=== PATIENT | female | born 1970 | race Caucasian/White ===

== ENCOUNTER 2021-05-23 10:01 | Outpatient (CLI) | payer MEDICAID, SELFPAY ==
--- NOTE | 2021-05-23 10:09 | XR_ITS ---
WS: [id number] Right ankle, 3 views, 05/23/2021 Clinical Data: ANKLE PAIN RIGHT Comparison: None. Findings: No fractures or dislocations are seen. The ankle mortise is normal. The talus and calcaneus are unrem arkable. No soft tissue swelling over the medial or lateral malleolus is seen. There is an Achilles spur and a plantar spur. XR/XR ankle RT min 3V* [id number] Impression: Negative right ankle.
--- NOTE | 2021-05-23 10:10 | XR_ITS ---
WS: [id number] Right foot, 3 views, 05/23/2021 Clinical Data: ANKLE PAIN RIGHT Comparison: None. Findings: No fractures or dislocations are seen. No bone destruction or erosion is noted. There is mild osteoar thritis of the right first MTP joint. There is an Achilles spur and a plantar spur. 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
== END 2021-05-23 10:02 | disposition home or self-care (01) ==
LOC: RAD 10:04
PROVIDERS: Family Provider Family Medicine; PCP Family Medicine; Visit Provider Nurse Practitioner Family
DX: M25.571 Pain in right ankle and joints of right foot (principal)
CPT/HCPCS: 73610; 73630

== ENCOUNTER → 2022-03-11 13:47 | Outpatient (BNVA) | payer MEDICAID, SELFPAY | PROVIDERS: Family Provider Family Medicine; PCP Family Medicine; Referring Provider Family Medicine; Visit Provider Specialist | DX: G56.03 Carpal tunnel syndrome, bilateral upper limbs (principal) | CPT/HCPCS: 73110 ==

== ENCOUNTER 2022-03-22 09:05 | Day surgery (SDC) | payer MEDICAID, SELFPAY ==
[2022-03-21 12:50] VITALS: BMI 37.4
[2022-03-22] VITALS (7 sets, daily range): BP systolic 120–169; BP diastolic 63–89; PULSE 78–94; RESP 14–24; TEMP 36.9–37.3; O2SAT 94–99
[2022-03-22] MEDS: CELEcoxib 200 mg Capsule 400 MG PO (09:37)
[2022-03-22] MEDS: acetaminophen 1,000 MG/100 ML PIGGYBACK 400 MG IV (09:37)
[2022-03-22] MEDS: sodium chloride 0.9% 1,000 ML 30 ML IV (09:38)
--- NOTE | 2022-03-22 09:47 | W.PM.OPSUD ---
Surgery/Procedure H&P Update DATE OF PROCEDURE: March 22, 2022 DATE H&P PERFORMED: 03/11/22 H&P UPDATE INFORMATION: I have reviewed H&P completed within last 30 days, I have examined patient prior to procedure, No changes to prior documentation and H&P is in [facility] EMR on date indicated PREOP DIAGNOSIS: Right carpal tunnel syndrome PLANNED PROCEDURE: Operation Date: 03/22/22 10:30 Proposed Procedures p RIGHT CARPAL TUNNEL RELEASE [id number],G56.00(Right) - Maria Luz Stahl MD Related Problem List Diagnoses (1) Right carpal tunnel syndrome:
[2022-03-22 09:52] LABS: OR HCG Qualitative Urine Negative (Negative)
--- NOTE | 2022-03-22 10:04 | ECG_ITS ---
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 Measurements Intervals [place] Rate: 77 P: 63 SC: 141 QRS: 15 QRSD: 97 T: -2 QT: 395 QTc: 447 Interpretive Statements SINUS RHYTHM No previous ECG available for comparison Electronically Signed On 03-22-2022 14:41:43 CASH POSTING SPECIALIST by Mateus Nelson M.D. [email or web address]
--- NOTE | 2022-03-22 10:55 | SUR.PREOP ---
1030 - Rounding \pt resting. at bedside. call light in place. no complaints at present.
[2022-03-22] MEDS: ceFAZolin 2,000 MG in sodium chloride 0.9% (plus) 50 ML 100 MG IV (10:58)
--- NOTE | 2022-03-22 12:06 | SUR.PHASEI ---
1200 PT TO PACU 2, PT AWAKES TO VOICE, GOOD RESP NOTED , PT MONITOR SR WITH NO ECTOPY, IV TO LT HAND #20 WITH 250NS AT KVO RATE PER GRAVITY, RT WRIST WITH SOFT DRESSING D/I DISTAL FINGERS PINK WARM WITH CAP REFILL LESS THAN 3 SECONDS, PT MOVES FINGERS TO COMMANDS AND STATES THAT SHE HAS TOUCH SENSATION 1208 PT ON RA TRIAL, TAKING OCC ICE CHIPS WITHOUT DIFFICULTY. VSS. HOB AT 30 DEGREES.
--- NOTE | 2022-03-22 12:27 | SUR.PHASEI ---
1220 PT INCONTINENT OF SMALL BROWN STOOL IN OR, PT COMPLETE LINEN CHANGE AND EMPERATRIZ CARE GIVEN, PT TO OPS BAY 10 WAITING ON PT IN ROOM, HANDOFF AT BEDSIDE ,PT DENIES PAIN AND NAUSEA, VSS. PT REQUESTS COFFEE TO SIP ON.
--- NOTE | 2022-03-22 12:45 | ANES.PREANE2 ---
Pre-Anesthetic Assessment Height/Weight: Height 1.65 m Weight 102.058 kg Temp Pulse Resp BP Pulse Ox O2 Del Method O2 Flow Rate 98.4 F 78 17 123/77 99 8 03/22/22 12:20 03/22/22 12:26 03/22/22 12:26 03/22/22 12:26 03/22/22 12:26 03/22/22 12:03/22/22 12:05 Preop Diagnosis: Right carpal tunnel syndrome Operation Date: 03/22/22 10:30 Proposed Procedures p RIGHT CARPAL TUNNEL RELEASE [id number],G56.00(Right) - Maria Luz Stahl MD Familial anesthetic complications: none Was Beta Diane taken within 24 hours: N/A Was Clonidine taken within 24 hours: N/A Last intake: Intake Last Liquid Date 03/21/22 Last Liquid Time 21:00 Last Solid Date 03/21/22 Last Solid Time 21:00 Social No alcohol and No tobacco Exam alert, oriented x 3, clear to auscultation bilaterally and regular rate & rhythm Airway Submandibular: within normal limits Cervical ROM: within normal limits Mallampati: Class II Dentition: full History/ROS No significant history except as noted CV/HEM Anemia Metabolic Morbid Obesity Anesthetic Plan ASA status: 2 Anesthesia: Choice Medications/Allergies Home Medications Medication Instructions Recorded Confirmed Last Taken Type ferrous sulfate 325 mg (65 mg 325 mg PO DAILY 12/11/21 03/22/22 03/21/22 History iron) tablet hydrocodone 5 mg-acetaminophen 325 1 tab PO Q4H PRN pain 7 days #20 03/22/22 Unknown Rx mg tablet tabs Allergies Allergy/AdvReac Type Severity Reaction Status Date / Time No Known Allergies Allergy Verified 03/21/22 12:46 Current Medications Generic Name Dose Route Start Last Admin Trade Name Freq PRN Reason Stop Dose Admin Sodium Chloride 1,000 mls @ 30 mls/hr 03/22/22 09:30 03/22/22 09:38 Sodium Chloride 0.9% IV 03/23/22 09:29 30 mls/hr .Q24H YANA Administration PFSH Anesthesia Social History Smoking and tobacco status: never smoked Alcohol intake: never History of recent travel: No Data Anesthesia Cardiac Studies: No Data to Display
--- NOTE | 2022-03-22 13:01 | P.PCN_ITS ---
PACU note Narrative: VSS, Good respiratory effort, report to HEALTHCARE LIAISON Exam: awake
--- NOTE | 2022-03-22 13:01 | PM.PACU ---
PACU note Narrative: VSS, Good respiratory effort, report to MANAGER SAS Exam: awake
--- NOTE | 2022-03-22 14:18 | ANE.PACU2 ---
Inpatient post-anesthesia follow up: Airway intact: Yes Vital signs: Temperature 98.4 F Pulse Rate 78 Respiratory Rate 17 Blood Pressure 123/77 Pulse Oximetry 99 Oxygen Delivery Me thod Room Air Oxygen Flow Rate 8 Fraction of Inspir ed Oxygen Hydration adequate: Yes Nausea and vomiting: No Pain level: 2 Mental status: Baseline
--- NOTE | 2022-03-22 17:16 | PM.OP ---
Operative Report Date of procedure: March 22, 2022 Pre-op diagnosis: Right carpal tunnel syndrome Post-op diagnosis: Right carpal tunnel syndrome Post-op findings: Purplish discoloration and compression across the median nerve consistent with symptoms Procedure done: Right carpal tunnel release Pathology: none sent Surgeon: Maria Luz Stahl Associate Professor Of English: None Anesthesia: General (Per LMA) Estimated blood loss (mL): 5 Tourniquet time (min): 28 (At 250 mmHg) IV fluids (mL): 600 Urine output (mL): 0 (No Thomas) Complications: None Findings: Significant compression across the carpal canal consistent with the diagnosis of carpal tunnel syndrome. Purplish discoloration, fibrous tissue, and hourglass shape to the median nerve. Brief History: This is a 51 year old female patient here today for right carpal tunnel release. Patient states that she has had numbness and tingling to her hands for years. Patient states it mostly affects the thumb; however, it does affect her other fingers. Patient states that the issues are mostly at night. Patient states that the numbness stays in her hands however she does have soreness to the lower arms. Findings were consistent with carpal tunnel syndrome. The patient also had nerve conduction studies consistent with this as well. After discussion in the office, questions were answered and consents were signed. The patient wished to proceed with right carpal tunnel release. Procedure: The patient was brought to the operating theater. The patient had a general anesthesia per LMA. The tourniquet was elevated to 250 mmHg for a total tourniquet time of 28 minutes. The patient was also given Ancef 2 g preoperatively. The arm was then prepped and draped with DuraPrep in usual fashion with the arm draped free. A surgical pause was performed. At the time, the surgical pause, we confirmed the site and side of surgery. We also confirmed the patient's identity, appropriate and timely administration of preoperative antibiotics and preoperative surgical markings. An incision was then made along the thenar crease. The incision crossed the wrist joint in a curvilinear fashion. Dissection continued through skin and soft tissues using a scalpel. The palmaris longus was identified along with the transverse carpal ligament. Each of these was released carefully to avoid injury to the median nerve. We were able to dissect gently into the carpal canal which was noted to be quite tight with significant compression across the median nerve. The nerve was visualized and was an hourglass shape. The canal was subsequently palpated to assure there was no bony encroachment upon the canal. There was a quite thickened fibrous tissue within the canal, and this was opened longitudinally as well. The canal was then palpated distally and proximally to assure that my small finger was passed easily without impingement. Finding this to be so, attention was directed to closure. The wound was irrigated with ropivacaine plain. It was then closed with 3-0 nylon in an interrupted mattress fashion. Sterile dressing was then placed consisting of Dermabond, OpSite, sterile soft roll, and an Dominic wrap. The tourniquet was released after 28 minutes. There were no complications. There were no specimens. The procedure was well tolerated. Plan is the patient will be discharged home. Related Problem List Diagnoses (1) Right carpal tunnel syndrome:
== END 2022-03-22 13:08 | disposition home or self-care (01) ==
PROVIDERS: PCP Family Medicine; Visit Provider Specialist
PROC: (CPT 64721; principal; 2022-03-22 10:20)
DX: G56.01 Carpal tunnel syndrome, right upper limb (principal); E66.01 Morbid (severe) obesity due to excess calories; Z68.37 Body mass index [BMI] 37.0-37.9, adult
CPT/HCPCS: 64721; 81025; 84703; 93005; J0131; J0690; J2405; J2704; J3010; J3490; J7030

== ENCOUNTER → 2023-03-12 09:31 | Outpatient (BNVA) | payer MEDICAID, SELFPAY | PROVIDERS: PCP Family Medicine; Visit Provider Specialist | DX: M77.8 Other enthesopathies, not elsewhere classified; M25.512 Pain in left shoulder | CPT/HCPCS: 73030 ==

== ENCOUNTER 2023-10-19 17:08 | Emergency (ER) | payer MEDICAID, SELFPAY ==
[2023-10-19 17:15] VITALS: BP 174/91; PULSE 69; RESP 18; O2SAT 98; BMI 36.3
--- NOTE | 2023-10-19 17:36 | CTR_ITS ---
PROCEDURE INFORMATION: Exam: CT Head Without Contrast Exam date and time: 10/19/2023 5:57 PM Age: 53 years old Clinical indication: Pain; Headache; Patient HX: C/O GAINES with hypertension TECHNIQUE: Imaging protocol: Computed tomography of the head without contrast. Sagittal and coronal reformatted images were created and reviewed. Radiation optimization: All CT scans at this facility use at least one of these dose optimization techniques: automated exposure control; mA and/or kV adjustment per patient size (includes targeted exams where dose is matched to clinical indication); or iterative reconstruction. COMPARISON: No relevant prior studies available. RADIATION DOSE METRICS: Total DLP (mGy-cm): 1038.75 FINDINGS: Brain: No acute intracranial hemorrhage. No acute infarct. No intra-axial or extra-axial masses. Cabrera-white matter differentiation is preserved. No cerebral edema. No extra-axial fluid collections. No midline shift. No evidence for Chiari 1 malformation. Mild cerebral volume loss. Cerebral ventricles: No hydrocephalus. Paranasal sinuses: Visualized paranasal sinuses are clear. Mastoid air cells: Visualized mastoid air cells are clear. Orbital cavities: No acute abnormality in the visualized orbits. Nasal cavity: Moderate left nasal septal deviation. Bones: Unremarkable. No acute fracture. Soft tissues: The extracranial soft tissues are unremarkable. CT/CT head wo con* [id number] IMPRESSION: 1. No acute abnormality of the brain. 2. Incidental/nonacute findings are listed in the report.
--- NOTE | 2023-10-19 17:37 | W.ED.HA ---
HPI - Headache General: Chief Complaint: Eye Problems Stated Complaint: Eye problems Time Seen by Provider: 10/19/23 17:25 History of Present Illness: 53-year-old female comes in today with severe headache with swelling and redness to the right eye. Patient reports a history of migraine headaches with sensitivity to light. Patient reports more severity of this migraine with the involvement of the eye. Patient appears in moderate pain. Patient reports light sensitivity. Patient does also have a history of high blood pressure. Related Data Home Medications Medication Instructions Recorded Confirmed ferrous sulfate 325 mg (65 mg 325 mg PO DAILY 12/11/21 03/12/23 iron) tablet Previous Rx's Medication Instructions Recorded naproxen 500 mg tablet 500 mg PO BID PRN pain, migraine 10/19/23 #20 tabs promethazine 25 mg tablet 25 mg PO BID PRN headache, 10/19/23 migraine #20 tabs Allergies Allergy/AdvReac Type Severity Reaction Status Date / Time No Known Allergies Allergy Verified 10/19/23 17:15 Review of Systems General: Reports: 10 or more systems reviewed and unremarkable except in HPI and below Eyes: Reports: eye redness (right eye) Neuro: Reports: headache(s) [facility] ED PFSH: Social History Smoking and tobacco/nicotine status: never used tobacco/nicotine Alcohol intake: never Substance/Drug Use: never Physical Exam Const: COMMON NORMALS: alert HENMT: COMMON NORMALS: normocephalic and Normal nasal mucous membranes and turbinates present HEAD & SCALP: normocephalic NOSE: Normal nasal mucous membranes and turbinates present MOUTH: Normal oral and palatal mucosa present Neck/C-Spine: COMMON NORMALS: full ROM Resp: COMMON NORMALS: normal respiratory effort and clear to auscultation bilaterally AUSCULTATION: clear to auscultation bilaterally Cardio: COMMON NORMALS: regular rate RATE: regular rate GI: COMMON NORMALS: non-tender Back/Pelvis: COMMON NORMALS: thoracic and lumbar spine normal to inspection Extremity: COMMON NORMALS: full ROM Neuro: SENSORIUM/ORIENTATION: Yes alert Skin: COMMON NORMALS: turgor normal GENERAL SKIN EXAM: turgor normal Course Vital Signs: Vital signs: Vital Signs Pulse Rate 67 10/19/23 18:51 Respiratory Rate 18 10/19/23 17:15 Blood Pressure 118/74 10/19/23 18:51 Pulse Oximetry 97 10/19/23 18:51 Oxygen Delivery Me thod Room Air 10/19/23 18:51 MDM - Headache Medical Decision Making 53-year-old female comes in today with a headache involving the right eye. Patient has some redness and drainage from the right eye. Patient appears in moderate to severe pain. Pupils are equal and reactive. Bilateral TMs are normal. No drainage is noted to the nose. Vital signs are normal except for some elevated blood pressure 174/91. Differential diagnosis includes but not limited to cluster headache, migraine headache, tension headache, rhinosinusitis, malignant hypertension. CBC and CMP were normal. CT of the head noted no significant abnormalities or acute changes. Patient had improvement of headache and felt relief to go home. Blood pressure came down to 118/74 prior to discharge. Believe patient had a migraine syndrome. Lab Data 10/19/23 14:55 10/19/23 14:[address] 10/19/23 17:36 IMPRESSION: 1. No acute abnormality of the brain. 2. Incidental/nonacute findings are listed in the report. Laboratory Results WBC 9.08 10^3/uL (3.29-11.43) 10/19/23 14:55 RBC 4.70 10^6/uL (3.85-5.65) 10/19/23 14:55 Hgb 13.20 g/dL (11.27-16.99) 10/19/23 14:55 Hct 41.9 % (36-47) 10/19/23 14:55 MCV 89.1 fl (85-98) 10/19/23 14:55 MCH 28.1 pg (27-33) 10/19/23 14:55 MCHC 31.5 g/dL (30-55) 10/19/23 14:55 RDW 13.6 % (12.1-15.1) 10/19/23 14:55 Plt Count 280 10^3/cmm (157-399) 10/19/23 14:55 MPV 10.8 fL (7.4-10.4) H 10/19/23 14:55 Neut % (Auto) 70.1 % 10/19/23 14:55 Lymph % (Auto) 22.6 % 10/19/23 14:55 [place] % (Auto) 5.7 % 10/19/23 14:55 Eos % (Auto) 1.1 % 10/19/23 14:55 Baso % (Auto) 0.2 % 10/19/23 14:55 Neut # (Auto) 6.36 10^3/uL (1.8-7.7) 10/19/23 14:55 Lymph # (Auto) 2.1 10^3/uL (0.8-4.8) 10/19/23 14:55 [place] # (Auto) 0.5 10^3/uL (0.2-0.9) 10/19/23 14:55 Eos # (Auto) 0.1 10^3/uL (0.0-0.8) 10/19/23 14:55 Baso # (Auto) 0.0 10^3/uL (0.0-0.1) 10/19/23 14:55 Nucleated RBC % (auto) 0 % 10/19/23 14:55 Nucleated RBCs # 0.0 /100WBC 10/19/23 14:55 Sodium 138 mmol/L (136-145) 10/19/23 14:55 Potassium 4.0 mmol/L (3.5-5.1) 10/19/23 14:55 Chloride 102 mmol/L (98-107) 10/19/23 14:55 Carbon Dioxide 24 mmol/L (22-29) 10/19/23 14:55 Anion Gap 16.0 (5-19) 10/19/23 14:55 BUN 12 mg/dL (6-20) 10/19/23 14:55 Creatinine 0.7 mg/dL (0.5-0.9) 10/19/23 14:55 GFR Calculation 88.2 mL/min (90-130) L 10/19/23 14:55 Glucose 84 mg/dL (65-115) 10/19/23 14:55 Calculated Osmolality 285 mOsm/kg (285-295) 10/19/23 14:55 Calcium 9.1 mg/dL (8.5-10.5) 10/19/23 14:55 Total Bilirubin 0.2 mg/dL (0.15-1.2) 10/19/23 14:55 AST 18 U/L (0-32) 10/19/23 14:55 ALT 31 U/L (0-33) 10/19/23 14:55 Alkaline Phosphatase 59 U/L (35-105) 10/19/23 14:55 Total Protein 7.2 g/dL (6.6-8.7) 10/19/23 14:55 Albumin 4.2 g/dL (3.5-5.2) 10/19/23 14:55 Globulin 3.0 g/dL (1.3-4.6) 10/19/23 14:55 All radiology interpretation(s) finalized by discharge Discharge Plan Discharge Patient Disposition: Home Clinical Impression: Migraine Qualifiers: Migraine type: unspecified Status migrainosus presence: without status migrainosus Intractability: not intractable Qualified Code(s): G43.909 - Migraine, unspecified, not intractable, without status migrainosus Condition: Stable Prescriptions: New promethazine 25 mg tablet 25 mg PO BID PRN (Reason: headache, migraine) Qty: 20 0RF Rx Instructions: take with Naproxen for migraine naproxen 500 mg tablet 500 mg PO BID PRN (Reason: pain, migraine) Qty: 20 0RF Rx Instructions: take with promethazine for migraine No Action ferrous sulfate 325 mg (65 mg iron) tablet 325 mg PO DAILY Discharge Orders: Discharge ED (Routine); Ordered 10/19/23 Ordered By: Kamlesh Polk Referrals: Oren Farah MD [Primary Care Provider] - Discharge Diet: Usual diet Discharge Activity: Increase activity as tolerated Patient Instructions: Migraine Headache (ED) Activity Restrictions/Additional Instructions: Use naproxen and promethazine for similar headaches. Drink plenty of water and fluids. Follow-up with primary care in 2 to 3 days for recheck. Return to ED for worsening symptoms or new concerns. Coding Level of Care Code ED Director Staffing for Marzena Jesus
[2023-10-19 18:07] LABS: Basophils % 0.2 %; Eosinophils # 0.1 10^3/uL (0.0-0.8); Eosinophils % 1.1 %; Hematocrit 41.9 % (36-47); Lymphocytes # 2.1 10^3/uL (0.8-4.8); Lymphocytes % 22.6 %; Mean Corpuscular HGB Conc 31.5 g/dL (30-55); Mean Corpuscular Hemoglobin 28.1 pg (27-33); Mean Corpuscular Volume 89.1 fl (85-98); Mean Platelet Volume 10.8 fL (7.4-10.4); Monocytes # 0.5 10^3/uL (0.2-0.9); Monocytes % 5.7 %; Neutrophils # 6.36 10^3/uL (1.8-7.7); Neutrophils % 70.1 %; Nucleated Red Blood Cells % 0 %; Platelet Count 280 10^3/cmm (157-399); Red Cell Distribution Width 13.6 % (12.1-15.1); White Blood Count 9.08 10^3/uL (3.29-11.43)
[2023-10-19 18:28] LABS: Alanine Aminotransferase 31 U/L (0-33); Albumin Level 4.2 g/dL (3.5-5.2); Alkaline Phosphatase 59 U/L (35-105); Aspartate Amino Transferase 18 U/L (0-32); Blood Urea Nitrogen 12 mg/dL (6-20); Calcium 9.1 mg/dL (8.5-10.5); Carbon Dioxide 24 mmol/L (22-29); Chloride 102 mmol/L (98-107); Creatinine Clr Calc Pharmacy 114.6806; Glomerular Filtration Rate 88.2 mL/min (90-130); Glucose 84 mg/dL (65-115); Osmolality Calculated 285 mOsm/kg (285-295); Sodium 138 mmol/L (136-145); Total Bilirubin 0.2 mg/dL (0.15-1.2); Total Protein 7.2 g/dL (6.6-8.7)
[2023-10-19] MEDS: sodium chloride 0.9% 250 ML IV (18:33)
[2023-10-19] MEDS: ketorolac 30 mg/mL INJ 15 MG IVP (18:35)
[2023-10-19] MEDS: diphenhydrAMINE 50 mg/mL SDV 1mL 12.5 MG IVP (18:37)
[2023-10-19] MEDS: metoclopramide 5 mg/mL SDV 2 mL 10 MG IVP (18:38)
[2023-10-19] MEDS: dexamethasone 10 mg/mL INJ IVP (18:44)
[2023-10-19 18:51] VITALS: BP 118/74; PULSE 67; O2SAT 97
== END 2023-10-19 19:56 | disposition home or self-care (01) ==
PROVIDERS: Emergency Provider Nurse Practitioner Family; PCP Family Medicine
DX: G43.909 Migraine, unspecified, not intractable, without status migrainosus (principal)
CPT/HCPCS: 70450; 80053; 85025; 96374; 96375; 99285; J1100; J1200; J1885; J2765; J7050

== ENCOUNTER → 2024-07-06 11:05 | Outpatient (BNVA) | payer MEDICAID, SELFPAY | PROVIDERS: PCP Family Medicine; Visit Provider Podiatrist Foot & Ankle Surgery | DX: M79.673 Pain in unspecified foot (principal); M25.579 Pain in unspecified ankle and joints of unspecified foot | CPT/HCPCS: 73610; 73630 ==